=== PATIENT | male | born 1985 ===

== ENCOUNTER 2019-04-25 18:37 | Emergency (ER) | payer BC ==
--- NOTE | 2019-04-25 19:09 | EDM.PDOC ---
ED HPI GENERAL MEDICAL PROBLEM - General Chief Complaint: Upper Extremity Injury/Pain Stated Complaint: INJURED HAND Time Seen by Provider: 04/25/19 19:06 Source of Information: Reports: Patient History Limitations: Reports: No Limitations - History of Present Illness INITIAL COMMENTS - FREE TEXT/NARRATIVE: HISTORY AND PHYSICAL: History of present illness: Patient is a 34-year-old male who presents to the emergency room with complaints of left lateral hand pain near his fifth digit. He states he has previously fractured this hand and does have "plates and screws in it". Yesterday he was working out and thought he felt a "pop" and did cause some pain after that. He woke up this morning and has increased pain and is concerned he may have reinjured it. Denies any numbness, tingling or weakness of the hand. Still able to fully use the hand per usual. Offers no systemic complaints. Review of systems: As per history of present illness and below otherwise all systems reviewed and negative. Past medical history: As per history of present illness and as reviewed below otherwise noncontributory. Surgical history: As per history of present illness and as reviewed below otherwise noncontributory. Social history: See social history for further information Family history: As per history of present illness and as reviewed below otherwise noncontributory. Physical exam: General: Well-developed and well-nourished 34-year-old male. Alert and oriented. Nontoxic appearing and in no acute distress. HEENT: Atraumatic, normocephalic, pupils equal and reactive bilaterally, negative for conjunctival pallor or scleral icterus, mucous membranes moist, trachea midline. No drooling or trismus noted. No meningeal signs. No hot potato voice noted. Lungs: Clear to auscultation, breath sounds equal bilaterally, chest nontender. Heart: S1S2, regular rate and rhythm without overt murmur Abdomen: Soft, nondistended, nontender. Skin: Intact, warm, dry. No lesions or rashes noted. Extremities: Atraumatic, moves all extremities per self without difficulty or deficits, strong radial pulse. Neurovascular unremarkable. Neuro: Awake, alert, oriented. Cranial nerves II through XII unremarkable. Cerebellum unremarkable. Motor and sensory unremarkable throughout. Exam nonfocal. Notes: I did offer her Toradol IM, he declines. Agreeable to x-ray at this time. X-ray shows no acute findings. Offered patient a splint. Encouraged him to follow-up with the orthopedic provider. Supportive care measures were reviewed and discussed. Voices understanding and is agreeable to plan of care. Denies any further questions or concerns at this time. Diagnostics: Hand x-ray, left Therapeutics: Splint Prescription: None Impression: Left hand pain Plan: 1. Rest, ice, elevate the affected extremity. Please wear the splint as directed. 2. Tylenol and/or Ibuprofen as needed for pain management. 3. Follow up with the Orthopedic provider as we discussed. Return to the ED as needed and as discussed. Definitive disposition and diagnosis as appropriate pending reevaluation and review of above. left hand Pain Score (Numeric/FACES): 2 - Related Data Allergies Allergy/AdvReac Type Severity Reaction Status Date / Time No Known Allergies Allergy Verified 04/25/19 19:05 Home Meds: Home Meds . [No Known Home Meds] 04/16/18 [History] Past Medical History HEENT History: Reports: None Cardiovascular History: Reports: None Respiratory History: Reports: Asthma Gastrointestinal History: Reports: None Genitourinary History: Reports: None Musculoskeletal History: Reports: None Neurological History: Reports: None Psychiatric History: Reports: None Endocrine/Metabolic History: Reports: None Hematologic History: Reports: None Immunologic History: Reports: None Oncologic (Cancer) History: Reports: None Dermatologic History: Reports: None - Infectious Disease History Infectious Disease History: Reports: Chicken Pox - Past Surgical History Head Surgeries/Procedures: Reports: None HEENT Surgical History: Reports: None Cardiovascular Surgical History: Reports: None Respiratory Surgical History: Reports: None GI Surgical History: Reports: None Male Surgical History: Reports: None Endocrine Surgical History: Reports: None Neurological Surgical History: Reports: None Musculoskeletal Surgical History: Reports: None Oncologic Surgical History: Reports: None Dermatological Surgical History: Reports: None Social & Family History - Family History Family Medical History: Noncontributory - Caffeine Use Caffeine Use: Reports: Coffee Review of Systems - Review of Systems Review Of Systems: ROS reveals no pertinent complaints other than HPI. ED EXAM, GENERAL - Physical Exam Exam: See Below (See dictation) Course - Vital Signs Last Recorded V/S: Last Vital Signs Temp 97.7 F 04/25/19 19:06 Pulse 70 04/25/19 19:06 Resp 18 10/24/19 19:06 BP 152/73 H 04/25/19 19:06 Pulse Ox 99 04/25/19 19:06 - Orders/Labs/Meds Orders: Active Orders 24 hr Category Date Time Status Hand Comp Min 3V Lt [CR] Stat Exams 04/25/19 19:05 Ordered Departure - Departure Time of Disposition: 20:16 Disposition: Home, Self-Care 01 Clinical Impression: Left hand pain - Discharge Information Referrals: PCP,None [Primary Care Provider] - Forms: ED Department Discharge Additional Instructions: The following information is given to patients seen in the emergency department who are being discharged to home. This information is to outline your options for follow-up care. We provide all patients seen in our emergency department with a follow-up referral. The need for follow-up, as well as the timing and circumstances, are variable depending upon the specifics of your emergency department visit. If you don't have a primary care physician on staff, we will provide you with a referral. We always advise you to contact your personal physician following an emergency department visit to inform them of the circumstance of the visit and for follow-up with them and/or the need for any referrals to a consulting specialist. The emergency department will also refer you to a specialist when appropriate. This referral assures that you have the opportunity for follow-up care with a specialist. All of these measure are taken in an effort to provide you with optimal care, which includes your follow-up. Under all circumstances we always encourage you to contact your private physician who remains a resource for coordinating your care. When calling for follow-up care, please make the office aware that this follow-up is from your recent emergency room visit. If for any reason you are refused follow-up, please contact the [facility] at and asked to speak to the emergency department charge nurse. [facility] [address] [place] [id number] [facility] [address] [place] [id number] 1. Rest, ice, elevate the affected extremity. Please wear the splint as directed. 2. Tylenol and/or Ibuprofen as needed for pain management. 3. Follow up with the Orthopedic provider as we discussed. Return to the ED as needed and as discussed. - My Orders Last 24 Hours: My Active Orders 04/25/19 19:05 Hand Comp Min 3V Lt [CR] Stat - Assessment/Plan Last 24 Hours: My Active Orders 04/25/19 19:05 Hand Comp Min 3V Lt [CR] Stat
--- NOTE | 2019-04-25 20:28 | CR ---
HISTORY: Pain and swelling. History of surgery with hardware. COMPARISON: None available. FINDINGS: The left hand is examined with PA, lateral, and oblique views. There are changes of a healed fracture of the midshaft of the 5th metacarpal with ORIF from a dorsal metallic plate with multiple anchoring screws. There is no sign of any deformity related to the fracture. There is no sign of acute fracture or dislocation. The soft tissues are normal in appearance without sign of radio-opaque foreign body. No significant degenerative disease is seen. IMPRESSION: No sign of acute osseous injury. No signs of any deformity of the 5th metacarpal, status post ORIF of a fracture of the midshaft. Dictated by Bradley Botello MD @ Apr 25 2019 8:24PM Signed by Dr. Bradley Botello @ Apr 25 2019 8:26PM
== END 2019-04-25 20:45 | disposition home or self-care (01) ==
LOC: MW.ED 18:37
DX: M79.642 Pain in left hand (principal)
CPT/HCPCS: 29125; 73130-26-LT; 73130-LT; 99283; 99283-25

== ENCOUNTER 2023-04-20 10:26 | Emergency (ER) | payer OTHER, BC | END 2023-04-20 14:17 | disposition home or self-care (01) | LOC: MW.ED 10:26 | DX: M25.552 Pain in left hip (principal); V49.50XA Passenger injured in collision with unspecified motor vehicles in traffic accident, initial encounter; W22.12XA Striking against or struck by front passenger side automobile airbag, initial encounter; Y92.411 Interstate highway as the place of occurrence of the external cause | CPT/HCPCS: 72100; 72100-26; 72170; 72170-26; 72192; 72192-26; 73552-26-LT; 73552-LT; 99283; 99285 ==